=== PATIENT | female | born 1945 | race Two or more races ===

== ENCOUNTER 2017-08-13 00:54 | Emergency (ER) | payer BC, OTHER ==
[~2017-08-13] VITALS: Ht 160 cm; Wt 72.6 kg
[2017-08-13 01:12] VITALS: BP 156/84
== END 2017-08-13 01:56 | disposition home or self-care (01) ==
LOC: ER 00:56
DX: S20.361A Insect bite (nonvenomous) of right front wall of thorax, initial encounter (principal); K21.9 Gastro-esophageal reflux disease without esophagitis; W57.XXXA Bitten or stung by nonvenomous insect and other nonvenomous arthropods, initial encounter; Y93.89 Activity, other specified; Y92.89 Other specified places as the place of occurrence of the external cause; Y99.8 Other external cause status
CPT/HCPCS: A4606; Z7502; Z7610